=== PATIENT | male | born 1975 | race Two or more races ===

== ENCOUNTER 2018-01-30 12:32 | Inpatient (IN) | payer OTHER ==
--- NOTE | 2018-01-30 12:57 | PDOC ---
History of Present Illness - General Stated Complaint: BITE Time Seen by Provider: 01/30/18 12:53 - History of Present Illness Initial Comments: 01/30/18 12:55 42 yo M with no significant pmh who p/w with redness and swelling at left bicep. Patient reports that he noticed worsening, redness, swelling, and pain at left bicep beginning yesterday (01/29/18). No drainage discharge appreciated. No identifiable triggers. Also endorses nausea without vomiting, decreased appetite, and diffuse headache beginning today. Denies OTC symptom management. Denies F/C, vomiting, CP, SOB, abdominal pain, diarrhea, constipation, urinary complaints, weakness, lightheadedness, sensory changes. PMHx: as noted above. Denies h/o cellulitis, or DM. ROS: as noted above SHx:1 cigarette per week for 5+ years. Denies Etoh, IVDA. Allergies: NKDA Past History - Past Medical History Allergies/Adverse Reactions: Allergies Allergy/AdvReac Type Severity Reaction Status Date / Time No Known Allergies Allergy Verified 01/30/18 12:36 COPD: No - Immunization History Immunization Up to Date: (UNKNOWN) - Suicide/Smoking/Psychosocial Hx Smoking History: Current every day smoker Have you smoked in the past 12 months: Yes Number of Cigarettes Smoked Daily: 2 Information on smoking cessation initiated: No Hx Alcohol Use: Yes (DAILY) Drug/Substance Use Hx: No Substance Use Type: Alcohol Review of Systems - Review of Systems Comments:: 01/30/18 12:56 GENERAL/CONSTITUTIONAL: No fever or chills. No weakness. HEAD, EYES, EARS, NOSE AND THROAT: No change in vision. No ear pain or discharge. No sore throat. CARDIOVASCULAR: No chest pain or shortness of breath RESPIRATORY: No cough, wheezing, or hemoptysis. GASTROINTESTINAL:+ nausea, and vomiting. No diarrhea or constipation. GENITOURINARY: No dysuria, frequency, or change in urination. MUSCULOSKELETAL: No joint or muscle swelling or pain. No neck or back pain. SKIN: + skin change left arm. NEUROLOGIC: No headache, vertigo, loss of consciousness, or change in strength/ sensation. ENDOCRINE: No increased thirst. No abnormal weight change HEMATOLOGIC/LYMPHATIC: No anemia, easy bleeding, or history of blood clots. ALLERGIC/IMMUNOLOGIC: No hives or skin allergy. *Physical Exam - Vital Signs Last Vital Signs Temp Pulse Resp BP Pulse Ox 98.9 F 123 H 20 131/57 98 01/30/18 12:36 01/30/18 12:36 01/30/18 12:36 01/30/18 12:36 01/30/18 12:36 - Physical Exam Comments: 01/30/18 12:56 GENERAL: Awake, alert, and fully oriented, in no acute distress HEAD: No signs of trauma, normocephalic, atraumatic EYES: PERRLA, EOMI, sclera anicteric, conjunctiva clear ENT: Hearing grossly normal, nares patent, oropharynx clear without exudates. Moist mucosa NECK: Normal ROM, supple, no lymphadenopathy, JVD, or masses LUNGS: No distress, speaks full sentences, clear to auscultation bilaterally HEART: Regular rate and rhythm, normal S1 and S2, no murmurs, rubs or gallops, peripheral pulses normal and equal bilaterally. ABDOMEN: Soft, nontender, normoactive bowel sounds. No guarding, no rebound. No masses. Skin: Left medial brachial 5 x 5 cm area of erythema, warmth, and ttp, with 4 x 3 deep area of slightl;y indurated, non fluctuant, firmness. + Central punctum, with absent drainage and discharge. Absent streaking, inguinal lymphadenopathy. EXTREMITIES : Normal inspection, Normal range of motion, no edema. No clubbing or cyanosis. ED Treatment Course - LABORATORY CBC & Chemistry Diagram: 01/30/18 13:06 01/30/18 13:06 Medical Decision Making - Medical Decision Making 01/30/18 13:14 42 yo M with no significant pmh who p/w with redness and swelling at left bicep. HR 123, Temp 98.9. Physical exam notable for left medial brachial 5 x 5 cm area of erythema, warmth, and ttp, with central area of induration, and firmness. Most likely cellulitis, with probable abscess. Patient noted to be tachycardic in triage, but no with no other SIRS criteria. However, patient with possible systemic signs of infection. Will obtain basic laboratory evaluation, and possible I&D. ED Course: CBC, CMP, Lactic Acid, blood culture U/S 01/30/18 14:21 WBC 15.2 01/30/18 14:21 LA: Neg UA: Neg Plan to admit for Cellulitis/SEPSIS, Started Clindamycin 600 mg IV 01/30/18 15:22 LUE U/S: Soft tissue swelling upper medial arm. No fluid collection. 01/30/18 15:33 Patient admitted to [facility] *DC/Admit/Observation/Transfer Diagnosis at time of Disposition: Cellulitis Qualifiers: Site of cellulitis: extremity Site of cellulitis of extremity: upper extremity Laterality: left Qualified Code(s): L03.114 - Cellulitis of left upper limb - Discharge Dispostion Decision to Admit order: Yes - Referrals - Patient Instructions Additional Instructions: Please return to the emergency department with any new or worsening symptoms or concerns. Please follow up with your primary care physician within 72 hours. - Post Discharge Activity - Attestations Physician Attestion: 01/30/18 12:57 I attest to the information provided in this note.
[2018-01-30 13:28] LABS: BASO % 0.6 % (0-2.0); EOS % 0.2 % (0-4.5); HEMATOCRIT 45.2 % (35.4-49); HEMOGLOBIN 15.3 GM/dL (11.7-16.9); MCH 29.8 pg (25.7-33.7); MCHC 33.9 g/dl (32.0-35.9); MEAN CELL VOLUME 88.1 fl (80-96); MEAN PLT VOLUME 9.2 fl (7.5-11.1); MONO % 7.6 % (3.8-10.2); NEUT % 80.6 % (42.8-82.8); PLATELET COUNT 250 K/MM3 (134-434); RBC 5.13 M/mm3 (4.00-5.60); RDW 12.9 % (11.9-15.9); WHITE BLOOD COUNT 15.2 K/mm3 (4.0-10.0)
[2018-01-30 13:45] LABS: URINE APPEARANCE CLEAR; URINE BILIRUBIN NEGATIVE (<2.0 mg/dL); URINE COLOR YELLOW; URINE GLUCOSE (UA) NEGATIVE (NEGATIVE); URINE KETONE NEGATIVE (NEGATIVE); URINE LEUK ESTERASE NEGATIVE (NEGATIVE); URINE NITRITE NEGATIVE (NEGATIVE); URINE UROBILINOGEN NEGATIVE mg/dL (0.2-1.0)
[2018-01-30 13:46] LABS: URINE PROTEIN 1+ (NEGATIVE)
[2018-01-30 13:51] LABS: ALBUMIN 4.4 g/dl (3.4-5.0); ALK PHOS 79 U/L (45-117); ANION GAP 9 (8-16); BILIRUBIN,TOTAL 0.7 mg/dL (0.2-1.0); BLOOD UREA NITROGEN 12 mg/dL (7-18); CALCIUM 9.2 mg/dL (8.5-10.1); CHLORIDE 102 mmol/L (98-107); CO2 24 mmol/L (21-32); CREATININE 0.6 mg/dL (0.7-1.3); GLUCOSE,RANDOM 106 mg/dL (74-106); POTASSIUM 4.1 mmol/L (3.5-5.1); SGOT/AST 23 U/L (15-37); SGPT/ALT 42 U/L (12-78); SODIUM 135 mmol/L (136-145)
[2018-01-30] MEDS ORDERED: CLINDAMYCIN 600MG PREMIX IVPB 600 MG/50 ML BAG IVPB ONE ×2 (14:21→14:35)
--- NOTE | 2018-01-30 14:25 | PDOC ---
Attending Attestation - [facility] HPI: 01/30/18 14:30 The patient is a 42 year old male no significant past medical history who presents to the emergency department for evaluation of redness and swelling of left bicep. The patient reports a 2 day history of swelling and pain at the left bicep. He reports moderate pain in his left bicep with no radiation. The patient reports associated symptoms of a moderate headache, chills, and nausea, without vomiting. He states the swelling and pain is much worse today than yesterday which prompted him to visit the emergency department for further evaluation. The patient denies history of cellulitis, diabetes, chest pain, shortness of breath, and dizziness. Denies fevers, vomiting, diarrhea, and constipation. Allergies: NKDA Past surgical history: Patient denies. Social history: Current everyday smoker. No reported alcohol consumption or drug use. Works at a restaurant. - Physicial Exam PE: Vitals: Triage Vital signs reviewed General Appearance: no acute distress, well nourished well developed, Head: Atraumatic, normocephalic Neck: Supple. Chest Wall: Nontender Cardiac: Regular rate and rhythm, no murmurs, no rubs, no gallops, Lungs: Clear to auscultation bilateral, good air movement bilaterally, Abdomen: Soft, nondistended, normal bowel sounds, nontender to palpation Extremities: (+)Large area of cellulitic redness on left bicep, firm and indurated. Skin: Warm and dry, no rashes or lesions, no petechiae Psych: normal mood, normal affect. - Medical Decision Making The patient is a 42 year old male no significant past medical history who presents to the emergency department for evaluation of redness and swelling of left bicep. Plan: Antibiotics Ultrasound <Patrica Gutierrez - Last Filed: 01/30/18 15:34> - Resident Resident Name: Jeremias Del Cid - ED Attending Attestation I have performed the following: I have examined & evaluated the patient, The case was reviewed & discussed with the resident, I agree w/resident's findings & plan, Exceptions are as noted - Medical Decision Making History examination concerning for cellulitis of the bicep with systemic spread given fever chills and elevated white blood cell count. Clindamycin ordered. Infectious disease consult ordered. Arron to medicine for further management. Ultrasound demonstrates no DVT and no drainable abscess. <Yrn Haynes - Last Filed: 01/30/18 18:51> Attestations - Attestations Documentation prepared by Patrica Gutierrez, acting as medical billing service for Yrn Haynes MD. <Patrica Gutierrez - Last Filed: 01/30/18 15:34>
[2018-01-30] MEDS ORDERED: ONDANSETRON 4 MG/2 ML VIAL IVPB ONE (15:03)
[2018-01-30] MEDS ORDERED: ONDANSETRON 4 MG/2 ML VIAL ONE (15:05)
[2018-01-30] MEDS: AMPICILLIN NA/SULBACTAM NA 3 GM in SODIUM CHLORIDE 100 ML IVPB SCH (16:46)
[2018-01-30] MEDS ORDERED: traMADol HCL 50 MG TABLET PO PRN ×2 (17:08→17:11)
--- NOTE | 2018-01-30 17:09 | HP ---
CHIEF COMPLAINT: Left upper arm pain, rednes x 2 days PCP: none HISTORY OF PRESENT ILLNESS: Patient is a 42 year old male with a no significant past medical history and on no home medications, comes in to the ER today with c/o of left bicep edema, redness and pain. Patient states that the left upper arm pain began on 01/29 and became progressively worse this morning prompting an ED visit. 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 Denies trauma, denies IV drug use. He reports headache, nausea and vomiting secondary to the pain. A left upper extremity doppler negative for DVT. On exam, patient appears to be in moderate pain when left bicep is palpated. No other areas of redness or edema noted. There is no drainage. He denies any animal/tick bites. There is a very small <0.5cm circular pimple on center of wound. Denies chest pain, shortness of breath or abdominal pain. No weakness or lightheadedness. ER course was notable for: (1) WBC 15.2 (2) Negative left upper ext doppler (3) Recent Travel: PAST MEDICAL HISTORY: PAST SURGICAL HISTORY: Social History: Smoking: na Alcohol: na Drugs: na Family History: Allergies No Known Allergies Allergy (Verified 01/30/18 12:36) HOME MEDICATIONS: Vital Signs - 24 hr 01/30/18 01/30/18 12:36 16:46 Temperature 98.9 F 99.0 F Pulse Rate 123 H Pulse Rate [ 95 H Left Apical] Respiratory 20 16 Rate Blood Pressure 131/57 Blood Pressure 146/86 [Left Arm] O2 Sat by Pulse 98 97 Oximetry (%) GENERAL: Awake, alert, and fully oriented, in no acute distress. HEAD: Normal with no signs of trauma. EYES: Pupils equal, round and reactive to light, extraocular movements intact, sclera anicteric, conjunctiva clear. No lid lag. EARS, NOSE, THROAT: Ears normal, nares patent, oropharynx clear without exudates. Moist mucous membranes. NECK: Normal range of motion, supple without lymphadenopathy, JVD, or masses. LUNGS: Breath sounds equal, clear to auscultation bilaterally. No wheezes, and no crackles. No accessory muscle use. HEART: Regular rate and rhythm, normal S1 and S2 without murmur, rub or gallop. ABDOMEN: Soft, nontender, not distended, normoactive bowel sounds, no guarding, no rebound, no masses. No hepatomegaly or splenomegaly. UPPER EXTREMITIES: left upper arm edema, pain swelling LOWER EXTREMITIES: 2+ pulses, warm, well-perfused. No calf tenderness. No peripheral edema. NEUROLOGICAL: Cranial nerves II-XII intact. Normal speech. Normal gait. PSYCHIATRIC: Cooperative. Good eye contact. Appropriate mood and affect. SKIN: Warm, dry, normal turgor, no rashes or lesions noted, normal capillary refill. Laboratory Results - last 24 hr 01/30/18 01/30/18 01/30/18 13:06 13:06 13:06 WBC 15.2 H RBC 5.13 Hgb 15.3 Hct 45.2 MCV 88.1 MCH 29.8 MCHC 33.9 RDW 12.9 Plt Count 250 MPV 9.2 Absolute Neuts (auto) 12.2 Neutrophils % 80.6 Lymphocytes % 11.0 Monocytes % 7.6 Eosinophils % 0.2 Basophils % 0.6 Nucleated RBC % 0 Sodium 135 L Potassium 4.1 Chloride 102 Carbon Dioxide 24 Anion Gap 9 BUN 12 Creatinine 0.6 L Creat Clearance w eGFR > 60 Random Glucose 106 Lactic Acid 0.8 Calcium 9.2 Total Bilirubin 0.7 AST 23 ALT 42 Alkaline Phosphatase 79 Total Protein 8.0 Albumin 4.4 Urine Color Urine Appearance Urine pH Ur Specific [place] Urine Protein Urine Glucose (UA) Urine Ketones Urine Blood Urine Nitrite Urine Bilirubin Urine Urobilinogen Ur Leukocyte Esterase Urine WBC (Auto) Urine RBC (Auto) 01/30/18 13:30 WBC RBC Hgb Hct MCV MCH MCHC RDW Plt Count MPV Absolute Neuts (auto) Neutrophils % Lymphocytes % Monocytes % Eosinophils % Basophils % Nucleated RBC % Sodium Potassium Chloride Carbon Dioxide Anion Gap BUN Creatinine Creat Clearance w eGFR Random Glucose Lactic Acid Calcium Total Bilirubin AST ALT Alkaline Phosphatase Total Protein Albumin Urine Color Yellow Urine Appearance Clear Urine pH 7.0 Ur Specific [place] 1.023 Urine Protein 1+ H Urine Glucose (UA) Negative Urine Ketones Negative Urine Blood Negative Urine Nitrite Negative Urine Bilirubin Negative Urine Urobilinogen Negative Ur Leukocyte Esterase Negative Urine WBC (Auto) 1 Urine RBC (Auto) None ASSESSMENT/PLAN: Patient is a 42 year old male with a no significant past medical history and on no home medications, comes in to the ER today with c/o of left bicep edema, redness and pain. Patient states that the left upper arm pain began on 01/29 and became progressively worse this morning prompting an ED visit. 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 Denies trauma, denies IV drug use. He reports headache, nausea and vomiting secondary to the pain. A left upper extremity doppler negative for DVT. On exam, patient appears to be in moderate pain when left bicep is palpated. No other areas of redness or edema noted. There is no drainage. He denies any animal/tick bites. There is a very small <0.5cm circular pimple on center of wound. Denies chest pain, shortness of breath or abdominal pain. No weakness or lightheadedness. ID: Left upper arm cellulitis, unclear etiology. Blood and Urine cultures sent. Start on Unasyn, apply warm compresses. Manage pain, monitor site for worsening edema. Negative for DVT, clots. CT scan of left upper ext ordered to rule out abscess. Lymes panel pending. Order hmg a1c, lipid panel. FEN NS @ 42cc for mild hyponatremia monitor electrolytes Low sodium diet Prophy: Heparin Protonix PT Visit type - Emergency Visit Emergency Visit: Yes ED Registration Date: 01/30/18 Care time: The patient presented to the Emergency Department on the above date and was hospitalized for further evaluation of their emergent condition. - New Patient This patient is new to me today: Yes Date on this admission: 01/30/18 - Critical Care Critical Care patient: No Hospitalist Screening - Colonoscopy Questionnaire Colonoscopy Questionnaire: Colonoscopy Questionnaire - Patient: 50 - 75 years old and never had a screening colonoscopy: Unknown History of colon or rectal polyps, or CA: Unknown History of IBD, Crohn's disease or UC: Unknown History of abdominal radiation therapy as a child: Unknown - Relative: 1 with colon or rectal CA, or polyps at age 60 or younger: Unknown Colon or rectal CA diagnosed at age 45 or younger: Unknown Multiple relatives with colon or rectal CA: Unknown - Outcome: Screening Result: Negative Screen
[2018-01-30] MEDS ORDERED: morphine SULFATE 4 MG/ML VIAL IM PRN (17:12)
[2018-01-30 18:08] VITALS: BMI 32.6
[2018-01-30] MEDS: SODIUM CHLORIDE 1,000 ML IV SCH (19:12)
[2018-01-30] MEDS: ACETAMINOPHEN 325 MG TABLET (FP) PO PRN (21:15)
[2018-01-31] MEDS: AMPICILLIN NA/SULBACTAM NA 3 GM in SODIUM CHLORIDE 100 ML IVPB SCH ×4 (01:08→18:05)
[2018-01-31 07:35] LABS: HEMATOCRIT 41.6 % (35.4-49); HEMOGLOBIN 14.3 GM/dL (11.7-16.9); MCH 30.8 pg (25.7-33.7); MCHC 34.5 g/dl (32.0-35.9); MEAN CELL VOLUME 89.4 fl (80-96); MEAN PLT VOLUME 9.7 fl (7.5-11.1); PLATELET COUNT 206 K/MM3 (134-434); RBC 4.65 M/mm3 (4.00-5.60); RDW 12.9 % (11.9-15.9); WHITE BLOOD COUNT 12.4 K/mm3 (4.0-10.0)
[2018-01-31 08:12] LABS: CHLORIDE 105 mmol/L (98-107); POTASSIUM 4.2 mmol/L (3.5-5.1); SODIUM 137 mmol/L (136-145)
[2018-01-31 08:20] LABS: ANION GAP 8 (8-16); BLOOD UREA NITROGEN 13 mg/dL (7-18); CALCIUM 8.3 mg/dL (8.5-10.1); CO2 24 mmol/L (21-32); CREATININE 0.6 mg/dL (0.7-1.3); GLUCOSE,RANDOM 101 mg/dL (74-106); MAGNESIUM 2.2 mg/dL (1.8-2.4)
--- NOTE | 2018-01-31 09:03 | CON.ID ---
Consult Consult Specialty:: infectious diseases Referred by:: Indy Reason for Consultation:: cellulitis of the left medial side of the arm - History of Present Illness Chief Complaint: pain and swelling and redness on the medical side of the left arm History of Present Illness: 42 year old male with a no significant past medical history and on no home medications, comes in to the ER today with c/o of left bicep edema, redness and pain. Patient states that the left upper arm pain began on 01/29 and became progressively worse this morning prompting an ED visit. 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 Denies trauma, denies IV drug use. He reports headache, nausea and vomiting secondary to the pain. patient does not know how exactly this started the swelling went on increasing with tenderness and erythema A left upper extremity doppler negative for DVT. - History Source History Provided By: Patient Limitations to Obtaining History: Language Barrier - Alcohol/Substance Use Hx Alcohol Use: Yes (DAILY) - Smoking History Smoking history: Current every day smoker Have you smoked in the past 12 months: Yes Aproximately how many cigarettes per day: 2 Home Medications - Allergies Allergies/Adverse Reactions: Allergies Allergy/AdvReac Type Severity Reaction Status Date / Time No Known Allergies Allergy Verified 01/30/18 12:36 Review of Systems - Review of Systems Constitutional: reports: No Symptoms Eyes: reports: No Symptoms HENT: reports: No Symptoms Neck: reports: No Symptoms Cardiovascular: reports: No Symptoms Respiratory: reports: No Symptoms Gastrointestinal: reports: No Symptoms Genitourinary: reports: No Symptoms Musculoskeletal: reports: Muscle Pain Integumentary: reports: Change in Color, Erythema (left arm) Neurological: reports: No Symptoms Endocrine: reports: No Symptoms Hematology/Lymphatic: reports: No Symptoms Psychiatric: reports: No Symptoms Physical Exam Vital Signs: Vital Signs Temperature 99.4 F 01/31/18 05:00 Pulse Rate 96 H 01/31/18 05:00 Respiratory Rate 18 01/31/18 05:00 Blood Pressure 109/62 01/31/18 05:00 O2 Sat by Pulse Oximetry (%) 98 01/30/18 21:00 Constitutional: Yes: Well Nourished, Calm, Mild Distress Eyes: Yes: Conjunctiva Clear HENT: Yes: Atraumatic, Normocephalic Neck: Yes: Supple, Trachea Midline Cardiovascular: Yes: Regular Rate and Rhythm Respiratory: Yes: Regular, CTA Bilaterally Gastrointestinal: Yes: Normal Bowel Sounds, Soft Musculoskeletal: Yes: WNL Extremities: Yes: Erythema, Other (swelling of the left arm) Edema: LUE: Trace Integumentary: Yes: Erythema, Other (induration) Wound/Incision: Yes: Other (patient has a head on the induration) Neurological: Yes: Alert, Oriented Psychiatric: Yes: Alert, Oriented Labs: CBC, BMP 01/31/18 06:15 01/31/18 06:15 Imaging - Results Chest X-ray: Report Reviewed, Image Reviewed Ultrasound: Report Reviewed, Image Reviewed Assessment/Plan patient coming with cellulitis of the left hand which has been ongoing now for 3 days with pain and leukocytosis currently is very tender at the moment it is more induaration and without any definite abscess noted though there is a head on the induration indication that could be the opening swelling of the left arm cellulitis of the left arm leukocytosis pain patient received a dose of clinda plan will add unasyn to clinda continue clinda monitor swelling monitor wbc rest as per the team
--- NOTE | 2018-01-31 09:11 | PN ---
Progress Note, Physician Chief Complaint: with pain and swelling redness slightly better - Current Medication List Current Medications: Active Medications Acetaminophen (Tylenol -) 650 mg PO Q6H PRN PRN Reason: PAIN LEVEL 7 - 10 Last Admin: 01/30/18 21:15 Dose: 650 mg Ampicillin Sodium/Sulbactam (Sodium 3 gm/ Sodium Chloride) 100 mls @ 200 mls/ hr IVPB Q8H-IV ROLDAN Last Admin: 01/31/18 07:18 Dose: Not Given Sodium Chloride (Normal Saline -) 1,000 mls @ 42 mls/hr IV ASDIR ROLDAN Last Admin: 01/30/18 19:12 Dose: 42 mls/hr Morphine Sulfate (Morphine Sulfate) 0.5 mg IM Q6H PRN PRN Reason: PAIN LEVEL 7 - 10 Pantoprazole Sodium (Protonix -) 40 mg PO DAILY ROLDAN Tramadol HCl (Ultram -) 50 mg PO Q4H PRN PRN Reason: PAIN LEVEL 4 - 6 Last Admin: 01/30/18 18:16 Dose: 50 mg - Objective Vital Signs: Vital Signs Temperature 99.4 F 01/31/18 05:00 Pulse Rate 96 H 01/31/18 05:00 Respiratory Rate 18 01/31/18 05:00 Blood Pressure 109/62 01/31/18 05:00 O2 Sat by Pulse Oximetry (%) 98 01/30/18 21:00 Constitutional: Yes: No Distress, Calm Cardiovascular: Yes: Regular Rate and Rhythm Respiratory: Yes: Regular, CTA Bilaterally Gastrointestinal: Yes: Normal Bowel Sounds, Soft Musculoskeletal: Yes: WNL Extremities: Yes: Erythema (left arm swelling and induration) Integumentary: Yes: Erythema, Other Neurological: Yes: Alert, Oriented Psychiatric: Yes: Alert, Oriented Labs: CBC, BMP 01/31/18 06:15 01/31/18 06:15 Assessment/Plan patient coming with cellulitis of the left hand which has been ongoing now for 3 days with pain and leukocytosis currently is very tender at the moment it is more induaration and without any definite abscess noted though there is a head on the induration indication that could be the opening swelling of the left arm cellulitis of the left arm leukocytosis pain wbc has decreased plan continue abx monitor swelling monitor wbc rest as per the team
[2018-01-31] MEDS: PANTOPRAZOLE 40 MG TABLET (FP) PO SCH (10:41)
--- NOTE | 2018-01-31 15:32 | PN ---
Physical Exam: SUBJECTIVE: Patient seen and examined OBJECTIVE: Vital Signs Period Temp Pulse Resp BP Sys/Carlton Pulse Ox Last 24 Hr 98.5 F-100.2 F 72-100 16-18 106-146/56-86 95-98 GENERAL: The patient is awake, alert, and fully oriented, in no acute distress. HEAD: Normal with no signs of trauma. EYES: PERRL, extraocular movements intact, sclera anicteric, conjunctiva clear. No ptosis. ENT: Ears normal, nares patent, oropharynx clear without exudates, moist mucous membranes. NECK: Trachea midline, full range of motion, supple. LUNGS: Breath sounds equal, clear to auscultation bilaterally, no wheezes, no crackles, no accessory muscle use. HEART: Regular rate and rhythm, S1, S2 without murmur, rub or gallop. ABDOMEN: Soft, nontender, nondistended, normoactive bowel sounds, no guarding, no rebound, no hepatosplenomegaly, no masses. EXTREMITIES: 2+ pulses, warm, well-perfused, no edema. NEUROLOGICAL: Cranial nerves II through XII grossly intact. Normal speech, gait not observed. PSYCH: Normal mood, normal affect. SKIN: Warm, dry, normal turgor, no rashes or lesions noted Laboratory Results - last 24 hr 01/30/18 01/31/18 01/31/18 18:00 06:15 06:15 WBC 12.4 H RBC 4.65 Hgb 14.3 Hct 41.6 MCV 89.4 MCH 30.8 MCHC 34.5 RDW 12.9 Plt Count 206 MPV 9.7 Sodium 137 Potassium 4.2 Chloride 105 Carbon Dioxide 24 Anion Gap 8 BUN 13 Creatinine 0.6 L Creat Clearance w eGFR > 60 Random Glucose 101 Hemoglobin A1c % Calcium 8.3 L Magnesium 2.2 Troponin I < 0.02 Triglycerides Cholesterol Total LDL Cholesterol HDL Cholesterol TSH Free T4 01/31/18 01/31/18 01/31/18 06:15 06:15 06:15 WBC RBC Hgb Hct MCV MCH MCHC RDW Plt Count MPV Sodium Potassium Chloride Carbon Dioxide Anion Gap BUN Creatinine Creat Clearance w eGFR Random Glucose Hemoglobin A1c % 6.0 Calcium Magnesium Troponin I Triglycerides 103 Cholesterol 139 Total LDL Cholesterol 84 HDL Cholesterol 44 TSH 1.41 Free T4 0.94 Active Medications Generic Name Dose Route Start Last Admin Trade Name Freq PRN Reason Stop Dose Admin Acetaminophen 650 mg 01/30/18 17:07 01/30/18 21:15 Tylenol - PO 650 mg Q6H PRN Administration PAIN LEVEL 7 - 10 Ampicillin Sodium/Sulbactam 100 mls @ 200 mls/hr 01/30/18 16:00 01/31/18 11: 57 Sodium 3 gm/ Sodium Chloride IVPB 200 mls/hr Q8H-IV ROLDAN Administration Sodium Chloride 1,000 mls @ 42 mls/hr 01/30/18 18:45 01/30/18 19:12 Normal Saline - IV 42 mls/hr ASDIR ROLDAN Administration Morphine Sulfate 0.5 mg 01/30/18 17:12 Morphine Sulfate IM Q6H PRN PAIN LEVEL 7 - 10 Pantoprazole Sodium 40 mg 01/31/18 10:00 01/31/18 10:41 Protonix - PO 40 mg DAILY ROLDAN Administration Tramadol HCl 50 mg 01/30/18 17:11 01/30/18 18:16 Ultram - PO 50 mg Q4H PRN Administration PAIN LEVEL 4 - 6 ASSESSMENT/PLAN: Patient is a 42 year old male with a no significant past medical history and on no home medications, comes in to the ER with c/o of left bicep edema, redness and pain. Patient states that the left upper arm pain began on 01/29 and became progressively prompting an ED visit. 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 Denies trauma, denies IV drug use. He reports headache, nausea and vomiting secondary to the pain. A left upper extremity doppler negative for DVT. No other areas of redness or edema noted. There is no drainage. He denies any animal/tick bites. There is a very small <0.5cm circular pimple on center of wound. Denies chest pain, shortness of breath or abdominal pain. No weakness or lightheadedness. ID: Left upper arm cellulitis, unclear etiology. Blood and Urine cultures sent. Start on Unasyn, apply warm compresses. Manage pain, monitor site for worsening edema. Negative for DVT, clots. CT scan of left upper ext ordered to rule out abscess-pending. Lymes panel pending. ID following. notes reviewed, recommend to continue Unasyn as redness improving. Warm compresses are also helping. FEN NS @ 42cc for mild hyponatremia monitor electrolytes Low sodium diet Prophy: Heparin Protonix PT Visit type - Emergency Visit Emergency Visit: Yes ED Registration Date: 01/30/18 Care time: The patient presented to the Emergency Department on the above date and was hospitalized for further evaluation of their emergent condition. - New Patient This patient is new to me today: No - Critical Care Critical Care patient: No - Discharge Referral Referred to [facility] No
--- NOTE | 2018-01-31 17:48 | EKG ---
Test Reason : Blood Pressure : / mmHG Vent. Rate : 091 BPM Atrial Rate : 091 BPM P-R Int : 150 ms QRS Dur : 080 ms QT Int : 344 ms P-R-T Axes : 054 034 059 degrees QTc Int : 423 ms NORMAL SINUS RHYTHM NONSPECIFIC T WAVE ABNORMALITY ABNORMAL ECG NO PREVIOUS ECGS AVAILABLE Confirmed by IRIS MORA MD ([id number]) on 01/31/2018 5:48:26 PM Referred By: Confirmed By:IRIS MORA MD
[2018-01-31] MEDS ORDERED: PT OWN MED DRAWER 7, Y5N ONE (18:02)
[2018-01-31] MEDS: SODIUM CHLORIDE 1,000 ML IV SCH (18:06)
[2018-01-31] MEDS: ACETAMINOPHEN 325 MG TABLET (FP) PO PRN (18:08)
[2018-02-01] MEDS ORDERED: PT OWN MED DRAWER 7, Y5N ONE ×2 (01:13→17:21)
[2018-02-01] MEDS: AMPICILLIN NA/SULBACTAM NA 3 GM in SODIUM CHLORIDE 100 ML IVPB SCH ×3 (02:25→17:24)
[2018-02-01 07:31] LABS: BASO % 0.5 % (0-2.0); EOS % 1.2 % (0-4.5); HEMATOCRIT 40.5 % (35.4-49); LYMPH % 14.7 % (8-40); MCH 30.8 pg (25.7-33.7); MCHC 34.6 g/dl (32.0-35.9); MEAN CELL VOLUME 89.1 fl (80-96); MEAN PLT VOLUME 9.3 fl (7.5-11.1); MONO % 7.5 % (3.8-10.2); NEUT % 76.1 % (42.8-82.8); PLATELET COUNT 207 K/MM3 (134-434); RBC 4.55 M/mm3 (4.00-5.60); RDW 12.8 % (11.9-15.9); WHITE BLOOD COUNT 10.5 K/mm3 (4.0-10.0)
[2018-02-01 08:04] LABS: CHLORIDE 106 mmol/L (98-107); POTASSIUM 4.1 mmol/L (3.5-5.1); SODIUM 138 mmol/L (136-145)
[2018-02-01 08:23] LABS: ALBUMIN 3.2 g/dl (3.4-5.0); ALK PHOS 58 U/L (45-117); ANION GAP 7 (8-16); BILIRUBIN,TOTAL 0.5 mg/dL (0.2-1.0); BLOOD UREA NITROGEN 11 mg/dL (7-18); CALCIUM 7.9 mg/dL (8.5-10.1); CO2 25 mmol/L (21-32); CREATININE 0.5 mg/dL (0.7-1.3); GLUCOSE,RANDOM 94 mg/dL (74-106); MAGNESIUM 2.1 mg/dL (1.8-2.4); SGOT/AST 14 U/L (15-37); SGPT/ALT 32 U/L (12-78); TOT PROT 6.4 g/dl (6.4-8.2)
--- NOTE | 2018-02-01 10:46 | PN ---
Progress Note, Physician History of Present Illness: still with the swelling which has actually increased more fluctuation tenderness noted - Current Medication List Current Medications: Active Medications Acetaminophen (Tylenol -) 650 mg PO Q6H PRN PRN Reason: PAIN LEVEL 7 - 10 Last Admin: 01/31/18 18:08 Dose: 650 mg Ampicillin Sodium/Sulbactam (Sodium 3 gm/ Sodium Chloride) 100 mls @ 200 mls/ hr IVPB Q8H-IV ROLDAN Last Admin: 02/01/18 02:25 Dose: 200 mls/hr Sodium Chloride (Normal Saline -) 1,000 mls @ 42 mls/hr IV ASDIR ROLDAN Last Admin: 01/31/18 18:06 Dose: 42 mls/hr Clindamycin Phosphate (Cleocin 600 Mg Premix Ivpb -) 600 mg in 50 mls @ 100 mls /hr IVPB Q8H-IV ROLDAN; Protocol Morphine Sulfate (Morphine Sulfate) 0.5 mg IM Q6H PRN PRN Reason: PAIN LEVEL 7 - 10 Pantoprazole Sodium (Protonix -) 40 mg PO DAILY [facility] Last Admin: 01/31/18 10:41 Dose: 40 mg Tramadol HCl (Ultram -) 50 mg PO Q4H PRN PRN Reason: PAIN LEVEL 4 - 6 Last Admin: 01/30/18 18:16 Dose: 50 mg - Objective Vital Signs: Vital Signs Temperature 98.9 F 02/01/18 06:00 Pulse Rate 89 02/01/18 06:00 Respiratory Rate 20 02/01/18 06:00 Blood Pressure 114/60 02/01/18 06:00 O2 Sat by Pulse Oximetry (%) 97 01/31/18 21:43 Constitutional: Yes: No Distress, Calm Cardiovascular: Yes: Regular Rate and Rhythm Respiratory: Yes: Regular, CTA Bilaterally Gastrointestinal: Yes: Normal Bowel Sounds, Soft Musculoskeletal: Yes: WNL Extremities: Yes: Erythema, Other Integumentary: Yes: Erythema Neurological: Yes: Alert, Oriented Psychiatric: Yes: Alert, Oriented Labs: CBC, BMP 02/01/18 06:00 02/01/18 06:00 Assessment/Plan patient coming with cellulitis of the left hand which has been ongoing now for 3 days with pain and leukocytosis currently is very tender at the moment it is more induration and without any definite abscess noted though there is a head on the induration indication that could be the opening swelling of the left arm cellulitis of the left arm leukocytosis pain wbc has decreased plan continue abx monitor swelling monitor wbc rest as per the team will add clinda i think we should reimage
[2018-02-01] MEDS: PANTOPRAZOLE 40 MG TABLET (FP) PO SCH (10:55)
[2018-02-01] MEDS: ACETAMINOPHEN 325 MG TABLET (FP) PO PRN ×2 (11:05→18:49)
[2018-02-01] MEDS: CLINDAMYCIN 600MG PREMIX IVPB 600 MG/50 ML BAG IVPB SCH ×2 (11:06→17:24)
--- NOTE | 2018-02-01 16:53 | PN ---
Physical Exam: SUBJECTIVE: Patient seen and examined. ot has pain and states erythema is worse today. OBJECTIVE: Vital Signs Period Temp Pulse Resp BP Sys/Carlton Pulse Ox Last 24 Hr 97.7 F-98.9 F 84-94 18-20 104-123/60-77 97-97 PE Neuro: alert, awake, cn 2-12intact Pulm: CTAB CV: s1 s2 rrr Abd: s nt nd + bs Ext: LUE swelling erythema tenderness warm Laboratory Results - last 24 hr 01/31/18 02/01/18 02/01/18 06:15 06:00 06:00 WBC 10.5 H RBC 4.55 Hgb 14.0 Hct 40.5 MCV 89.1 MCH 30.8 MCHC 34.6 RDW 12.8 Plt Count 207 MPV 9.3 Absolute Neuts (auto) 8.0 Neutrophils % 76.1 Lymphocytes % 14.7 D Monocytes % 7.5 Eosinophils % 1.2 D Basophils % 0.5 Nucleated RBC % 0 Sodium 138 Potassium 4.1 Chloride 106 Carbon Dioxide 25 Anion Gap 7 L BUN 11 Creatinine 0.5 L Creat Clearance w eGFR > 60 Random Glucose 94 Calcium 7.9 L Magnesium 2.1 Total Bilirubin 0.5 D AST 14 L D ALT 32 D Alkaline Phosphatase 58 D Total Protein 6.4 Albumin 3.2 L D Free T3 3.1 Active Medications Generic Name Dose Route Start Last Admin Trade Name Freq PRN Reason Stop Dose Admin Acetaminophen 650 mg 01/30/18 17:07 02/01/18 11:05 Tylenol - PO 650 mg Q6H PRN Administration PAIN LEVEL 7 - 10 Ampicillin Sodium/Sulbactam 100 mls @ 200 mls/hr 01/30/18 16:00 02/01/18 10: 54 Sodium 3 gm/ Sodium Chloride IVPB 200 mls/hr Q8H-IV ROLDAN Administration Sodium Chloride 1,000 mls @ 42 mls/hr 01/30/18 18:45 01/31/18 18:06 Normal Saline - IV 42 mls/hr ASDIR ROLDAN Administration Clindamycin Phosphate 600 mg in 50 mls @ 100 mls/hr 02/01/18 10:45 02/01/18 11:06 Cleocin 600 Mg Premix Ivpb - IVPB 100 mls/hr Q8H-IV ROLDAN Administration Protocol Morphine Sulfate 0.5 mg 01/30/18 17:12 Morphine Sulfate IM Q6H PRN PAIN LEVEL 7 - 10 Pantoprazole Sodium 40 mg 01/31/18 10:00 02/01/18 10:55 Protonix - PO 40 mg DAILY ROLDAN Administration Tramadol HCl 50 mg 01/30/18 17:11 01/30/18 18:16 Ultram - PO 50 mg Q4H PRN Administration PAIN LEVEL 4 - 6 Microbiology 01/30/18 14:20 Blood - Peripheral Venous Blood Culture - Preliminary NO GROWTH OBTAINED AFTER 48 HOURS, INCUBATION TO CONTINUE FOR 3 DAYS. 01/30/18 14:20 Blood - Peripheral Venous Blood Culture - Preliminary NO GROWTH OBTAINED AFTER 48 HOURS, INCUBATION TO CONTINUE FOR 3 DAYS. 01/30/18 21:40 Urine - Urine Clean Catch Urine Culture - Final NO GROWTH OBTAINED Assessment: 42 year old male with no pmhx admitted with RUE pain and swelling. comes in to the ER with c/o of left bicep edema, redness and pain. Patient states that the left upper arm pain began on 01/29 and became progressively p A left upper extremity doppler negative for DVT. No other areas of redness or edema noted. There is no drainage. He denies any animal/tick bites. There is a very small <0.5cm circular pimple on center of wound. Plan: 1. LUE cellulitis - Antibiotics unysan, clinda per ID - CT noted - Re image tomorrow? 2. dvt - heparin sq Visit type - Emergency Visit Emergency Visit: Yes ED Registration Date: 01/30/18 Care time: The patient presented to the Emergency Department on the above date and was hospitalized for further evaluation of their emergent condition. - New Patient This patient is new to me today: Yes Date on this admission: 02/01/18 - Critical Care Critical Care patient: No
[2018-02-02] MEDS ORDERED: PT OWN MED DRAWER 7, Y5N ONE ×2 (01:39→09:44)
[2018-02-02] MEDS: AMPICILLIN NA/SULBACTAM NA 3 GM in SODIUM CHLORIDE 100 ML IVPB SCH ×3 (02:06→17:45)
[2018-02-02] MEDS: CLINDAMYCIN 600MG PREMIX IVPB 600 MG/50 ML BAG IVPB SCH ×3 (02:59→17:05)
[2018-02-02 07:57] LABS: BASO % 0.6 % (0-2.0); EOS % 2.3 % (0-4.5); HEMATOCRIT 39.5 % (35.4-49); HEMOGLOBIN 13.6 GM/dL (11.7-16.9); LYMPH % 18.1 % (8-40); MCH 30.6 pg (25.7-33.7); MCHC 34.6 g/dl (32.0-35.9); MEAN CELL VOLUME 88.5 fl (80-96); MEAN PLT VOLUME 9.2 fl (7.5-11.1); MONO % 7.5 % (3.8-10.2); NEUT % 71.5 % (42.8-82.8); PLATELET COUNT 240 K/MM3 (134-434); RBC 4.46 M/mm3 (4.00-5.60); RDW 12.9 % (11.9-15.9); WHITE BLOOD COUNT 8.5 K/mm3 (4.0-10.0)
[2018-02-02 08:21] LABS: ANION GAP 8 (8-16); BLOOD UREA NITROGEN 15 mg/dL (7-18); CALCIUM 8.4 mg/dL (8.5-10.1); CHLORIDE 108 mmol/L (98-107); CO2 25 mmol/L (21-32); GLUCOSE,RANDOM 108 mg/dL (74-106); POTASSIUM 4.1 mmol/L (3.5-5.1); SODIUM 141 mmol/L (136-145)
[2018-02-02 08:23] LABS: CREATININE 0.6 mg/dL (0.7-1.3)
[2018-02-02] MEDS: ACETAMINOPHEN 325 MG TABLET (FP) PO PRN ×2 (08:49→15:24)
--- NOTE | 2018-02-02 11:10 | PN ---
Progress Note, Physician History of Present Illness: patient stable erythema has decreased localized induration - Current Medication List Current Medications: Active Medications Acetaminophen (Tylenol -) 650 mg PO Q6H PRN PRN Reason: PAIN LEVEL 7 - 10 Last Admin: 02/02/18 08:49 Dose: 650 mg Ampicillin Sodium/Sulbactam (Sodium 3 gm/ Sodium Chloride) 100 mls @ 200 mls/ hr IVPB Q8H-IV ROLDAN Last Admin: 02/02/18 10:18 Dose: 200 mls/hr Clindamycin Phosphate (Cleocin 600 Mg Premix Ivpb -) 600 mg in 50 mls @ 100 mls /hr IVPB Q8H-IV ROLDAN; Protocol Last Admin: 02/02/18 09:45 Dose: 100 mls/hr Morphine Sulfate (Morphine Sulfate) 0.5 mg IM Q6H PRN PRN Reason: PAIN LEVEL 7 - 10 Tramadol HCl (Ultram -) 50 mg PO Q4H PRN PRN Reason: PAIN LEVEL 4 - 6 Last Admin: 01/30/18 18:16 Dose: 50 mg - Objective Vital Signs: Vital Signs Temperature 98.2 F 02/02/18 09:00 Pulse Rate 82 02/02/18 09:00 Respiratory Rate 18 02/02/18 09:00 Blood Pressure 123/78 02/02/18 09:00 O2 Sat by Pulse Oximetry (%) 94 L 02/02/18 09:00 Constitutional: Yes: No Distress, Calm Cardiovascular: Yes: Regular Rate and Rhythm Respiratory: Yes: Regular, CTA Bilaterally Gastrointestinal: Yes: Normal Bowel Sounds, Soft Musculoskeletal: Yes: Other Extremities: Yes: Erythema, Other Neurological: Yes: Alert, Oriented Psychiatric: Yes: Alert, Oriented Labs: CBC, BMP 02/02/18 06:20 02/02/18 06:20 Assessment/Plan swelling of the left arm cellulitis of the left arm leukocytosis pain wbc has decreased plan continue abx surgery consult probably needs i and d rest as per the team erythema has improved cellulitis has improved
--- NOTE | 2018-02-02 15:41 | PN ---
Progress Note (short form) - Note Progress Note: SUBJECTIVE: The patient was seen and examined at the bedside, he states he is feeling better today F/u surgery consult Current Medications Generic Name Dose Route Start Last Admin Trade Name Freq PRN Reason Stop Dose Admin Acetaminophen 650 mg 01/30/18 17:07 02/02/18 15:24 Tylenol - PO 650 mg Q6H PRN Administration PAIN LEVEL 7 - 10 Ampicillin Sodium/Sulbactam 100 mls @ 200 mls/hr 01/30/18 16:00 02/02/18 10: 18 Sodium 3 gm/ Sodium Chloride IVPB 200 mls/hr Q8H-IV ROLDAN Administration Clindamycin Phosphate 600 mg in 50 mls @ 100 mls/hr 02/01/18 10:45 02/02/18 09:45 Cleocin 600 Mg Premix Ivpb - IVPB 100 mls/hr Q8H-IV ROLDAN Administration Protocol Morphine Sulfate 0.5 mg 01/30/18 17:12 Morphine Sulfate IM Q6H PRN PAIN LEVEL 7 - 10 Tramadol HCl 50 mg 01/30/18 17:11 01/30/18 18:16 Ultram - PO 50 mg Q4H PRN Administration PAIN LEVEL 4 - 6 OBJECTIVE: Vital Signs Period Temp Pulse Resp BP Sys/Carlton Pulse Ox Last 24 Hr 98.0 F-98.6 F 82-88 18-18 114-130/63-78 94-95 PE Neuro: alert, awake, cn 2-12intact Pulm: CTAB CV: s1 s2 rrr Abd: s nt nd + bs Ext: LUE with induration and area of fluctuance CBCD WBC 8.5 K/mm3 (4.0-10.0) 02/02/18 06:20 RBC 4.46 M/mm3 (4.00-5.60) 02/02/18 06:20 Hgb 13.6 GM/dL (11.7-16.9) 02/02/18 06:20 Hct 39.5 % (35.4-49) 02/02/18 06:20 MCV 88.5 fl (80-96) 02/02/18 06:20 MCHC 34.6 g/dl (32.0-35.9) 02/02/18 06:20 RDW 12.9 % (11.9-15.9) 02/02/18 06:20 Plt Count 240 K/MM3 (134-434) 02/02/18 06:20 MPV 9.2 fl (7.5-11.1) 02/02/18 06:20 CMP Sodium 141 mmol/L (136-145) 02/02/18 06:20 Potassium 4.1 mmol/L (3.5-5.1) 02/02/18 06:20 Chloride 108 mmol/L (98-107) H 02/02/18 06:20 Carbon Dioxide 25 mmol/L (21-32) 02/02/18 06:20 Anion Gap 8 (8-16) 02/02/18 06:20 BUN 15 mg/dL (7-18) D 02/02/18 06:20 Creatinine 0.6 mg/dL (0.7-1.3) L 02/02/18 06:20 Creat Clearance w eGFR > 60 (>60) 02/02/18 06:20 Random Glucose 108 mg/dL (74-106) H 02/02/18 06:20 Calcium 8.4 mg/dL (8.5-10.1) L 02/02/18 06:20 Total Bilirubin 0.5 mg/dL (0.2-1.0) D 02/01/18 06:00 AST 14 U/L (15-37) L D 02/01/18 06:00 ALT 32 U/L (12-78) D 02/01/18 06:00 Alkaline Phosphatase 58 U/L (45-117) D 02/01/18 06:00 Total Protein 6.4 g/dl (6.4-8.2) 02/01/18 06:00 Albumin 3.2 g/dl (3.4-5.0) L D 02/01/18 06:00 CARDIAC ENZYMES Troponin I < 0.02 ng/ml (0.00-0.05) 01/30/18 18:00 Microbiology 01/30/18 14:20 Blood - Peripheral Venous Blood Culture - Preliminary NO GROWTH OBTAINED AFTER 72 HOURS, INCUBATION TO CONTINUE FOR 2 DAYS. 01/30/18 14:20 Blood - Peripheral Venous Blood Culture - Preliminary NO GROWTH OBTAINED AFTER 72 HOURS, INCUBATION TO CONTINUE FOR 2 DAYS. 01/30/18 21:40 Urine - Urine Clean Catch Urine Culture - Final NO GROWTH OBTAINED Assessment: This is a 42 year old male with no significant PMHx who presented to the ED with left bicep edema, erythema, pain. Plan: 1) Left arm cellulitis/abscess - For I&D in OR tomorrow - Continue Unasyn - Continue Clindamycin - Pain management - Appreciate ID consult - Appreciate surgery consult 2) F/E/N: - Regular diet - NPO after midnight 3) Prophylaxis: - OOB ambulating - SCDs bilaterally 4) Dispo: - Requires continued inpatient care CODE STATUS: FULL CODE Visit type - Emergency Visit Emergency Visit: Yes ED Registration Date: 01/30/18 Care time: The patient presented to the Emergency Department on the above date and was hospitalized for further evaluation of their emergent condition. - New Patient This patient is new to me today: Yes Date on this admission: 02/02/18 - Critical Care Critical Care patient: No
--- NOTE | 2018-02-02 16:25 | CONSULT ---
- Consultation REQUESTING PROVIDER: CONSULT REQUEST: We have been asked to surgically evaluate this patient for ( specify). PCP:Bethanie Da Silva HISTORY OF PRESENT ILLNESS: PMHx: PSHx: Allergies Allergy/AdvReac Type Severity Reaction Status Date / Time No Known Allergies Allergy Verified 01/30/18 12:36 REVIEW OF SYSTEMS: CONSTITUTIONAL: Absent: fever, chills, diaphoresis, generalized weakness, malaise, loss of appetite, weight change CARDIOVASCULAR: Absent: chest pain, syncope, palpitations, irregular heart rate, lightheadedness , peripheral edema RESPIRATORY: Absent: cough, shortness of breath, dyspnea with exertion, wheezing, stridor, hemoptysis GASTROINTESTINAL: Absent: abdominal pain, abdominal distension, nausea, vomiting, diarrhea, constipation, melena, hematochezia GENITOURINARY: Absent: dysuria, frequency, urgency, hesitancy, hematuria, flank pain, genital pain MUSCULOSKELETAL: Absent: myalgia, arthralgia, joint swelling, back pain, neck pain SKIN: Absent: rash, itching, pallor HEMATOLOGIC/IMMUNOLOGIC: Absent: easy bleeding, easy bruising, lymphadenopathy NEUROLOGIC: Absent: headache, focal weakness, paresthesias, dizziness, unsteady gait, seizure, mental status changes, bladder or bowel incontinence PSYCHIATRIC: Absent: anxiety, depression, suicidal or homicidal ideation, hallucinations. PHYSICAL EXAM: GENERAL: Awake, alert, and fully oriented, in no acute distress. HEAD: Normal with no signs of trauma. EYES: PERRL, sclera anicteric, conjunctiva clear. NECK: Normal ROM, supple without lymphadenopathy, JVD, or masses. LUNGS: Clear to auscultation bilat anteriorly. No wheezes, and no crackles. No accessory muscle use. HEART: Regular rate and rhythm. No murmurs ABDOMEN: Soft, nontender, not distended, normoactive bowel sounds, no guarding, no rebound, no masses. No organomegaly. MUSCULOSKELETAL: Normal ROM at all joints. No bony deformities or tenderness. No CVA tenderness. UPPER EXTREMITIES: 2+ pulses, warm, well-perfused. No cyanosis. Cap refill <2 seconds. No peripheral edema. LOWER EXTREMITIES: 2+ pulses, warm, well-perfused. No calf tenderness. No peripheral edema. NEUROLOGICAL: Normal speech, gait not observed. PSYCH: Cooperative. Good eye contact. Appropriate mood and affect. SKIN: Warm, dry, normal turgor, no rashes or lesions noted. Vital Signs Temperature 98.2 F 02/02/18 09:00 Pulse Rate 82 02/02/18 09:00 Respiratory Rate 18 02/02/18 09:00 Blood Pressure 123/78 02/02/18 09:00 O2 Sat by Pulse Oximetry (%) 94 L 02/02/18 09:00 Lab Results WBC 8.5 K/mm3 (4.0-10.0) 02/02/18 06:20 RBC 4.46 M/mm3 (4.00-5.60) 02/02/18 06:20 Hgb 13.6 GM/dL (11.7-16.9) 02/02/18 06:20 Hct 39.5 % (35.4-49) 02/02/18 06:20 MCV 88.5 fl (80-96) 02/02/18 06:20 MCHC 34.6 g/dl (32.0-35.9) 02/02/18 06:20 RDW 12.9 % (11.9-15.9) 02/02/18 06:20 Plt Count 240 K/MM3 (134-434) 02/02/18 06:20 Sodium 141 mmol/L (136-145) 02/02/18 06:20 Potassium 4.1 mmol/L (3.5-5.1) 02/02/18 06:20 Chloride 108 mmol/L (98-107) H 02/02/18 06:20 Carbon Dioxide 25 mmol/L (21-32) 02/02/18 06:20 Anion Gap 8 (8-16) 02/02/18 06:20 BUN 15 mg/dL (7-18) D 02/02/18 06:20 Creatinine 0.6 mg/dL (0.7-1.3) L 02/02/18 06:20 Random Glucose 108 mg/dL (74-106) H 02/02/18 06:20 Calcium 8.4 mg/dL (8.5-10.1) L 02/02/18 06:20 IMP: soft tissue abscess LUE PLAN: I and D in OR 02/04/48; d/w patient in [place]. Juan Diego Cali MD FACS
[2018-02-03] MEDS: CLINDAMYCIN 600MG PREMIX IVPB 600 MG/50 ML BAG IVPB SCH ×3 (01:02→17:36)
[2018-02-03] MEDS: AMPICILLIN NA/SULBACTAM NA 3 GM in SODIUM CHLORIDE 100 ML IVPB SCH ×3 (01:28→18:14)
[2018-02-03] MEDS ORDERED: PT OWN MED DRAWER 7, Y5N ONE ×2 (09:05→17:34)
[2018-02-03] MEDS ORDERED: ONDANSETRON 4 MG/2 ML VIAL IVPUSH PRN (10:17)
[2018-02-03] MEDS ORDERED: LACTATED RINGERS SOLUTION 1,000 ML IV SCH (10:30)
[2018-02-03] MEDS ORDERED: PROPOFOL 20 ML ONE ×2 (10:52)
[2018-02-03] MEDS ORDERED: ONDANSETRON 4 MG/2 ML VIAL ONE (11:18)
[2018-02-03] MEDS ORDERED: DEXAMETHASONE SOD PHOSPHATE 4 MG/1 ML VIAL ONE (11:18)
[2018-02-03] MEDS ORDERED: oxyCODONE HCL 5 MG TABLET PO PRN (11:31)
[2018-02-03] MEDS ORDERED: KETOROLAC TROMETHAMINE 30 MG/1 ML VIAL IVPUSH PRN (11:32)
--- NOTE | 2018-02-03 11:32 | OP ---
Operative Note - Note: Operative Date: 02/03/18 Pre-Operative Diagnosis: abscess left upper arm Operation: incision/drainage abscess left upper arm Post-Operative Diagnosis: Same as Pre-op Surgeon: Juan Diego Cali Rocket Assembly Operator: Sarika Coughlin Anesthesiologist/LINING SEWER: Torey Carvajal Anesthesia: General Specimens Removed: culture only Estimated Blood Loss (mls): 5
--- NOTE | 2018-02-03 14:18 | PN ---
Progress Note (short form) - Note Progress Note: SUBJECTIVE: The patient was seen and examined at the bedside, he states he has pain on his left upper extremity S/p I&D today Current Medications Generic Name Dose Route Start Last Admin Trade Name Freq PRN Reason Stop Dose Admin Acetaminophen 650 mg 01/30/18 17:07 02/02/18 15:24 Tylenol - PO 650 mg Q6H PRN Administration PAIN LEVEL 7 - 10 Fentanyl 50 mcg 02/03/18 10:17 Sublimaze Injection - IVPUSH [id number] PRN PAIN-PACU ORDER X 4 DOSES ONLY Ampicillin Sodium/Sulbactam 100 mls @ 200 mls/hr 01/30/18 16:00 02/03/18 09: 37 Sodium 3 gm/ Sodium Chloride IVPB 200 mls/hr Q8H-IV ROLDAN Administration Clindamycin Phosphate 600 mg in 50 mls @ 100 mls/hr 02/01/18 10:45 02/03/18 09:06 Cleocin 600 Mg Premix Ivpb - IVPB 100 mls/hr Q8H-IV ROLDAN Administration Protocol Ketorolac Tromethamine 30 mg 02/03/18 11:32 02/03/18 11:57 Toradol Injection - IVPUSH 02/08/18 17:59 30 mg Q8H-IV PRN Administration PAIN LEVEL 1 - 3 Morphine Sulfate 0.5 mg 01/30/18 17:12 Morphine Sulfate IM Q6H PRN PAIN LEVEL 7 - 10 Ondansetron HCl 4 mg 02/03/18 10:17 Zofran Injection IVPUSH Q6H PRN NAUSEA AND/OR VOMITING Oxycodone HCl 5 mg 02/03/18 11:31 Roxicodone - PO Q6H PRN PAIN LEVEL 1-5 Oxycodone HCl 10 mg 02/03/18 11:32 Roxicodone - PO Q6H PRN PAIN LEVEL 6-10 OBJECTIVE: Vital Signs Period Temp Pulse Resp BP Sys/Carlton Pulse Ox Last 24 Hr 97.3 F-98.3 F 65-78 16-20 104-138/60-86 95-99 PE Neuro: alert, awake, cn 2-12intact Pulm: CTAB CV: s1 s2 rrr Abd: s nt nd + bs Ext: LUE with dressing, some dried blood on dressing CBCD WBC 8.5 K/mm3 (4.0-10.0) 02/02/18 06:20 RBC 4.46 M/mm3 (4.00-5.60) 02/02/18 06:20 Hgb 13.6 GM/dL (11.7-16.9) 02/02/18 06:20 Hct 39.5 % (35.4-49) 02/02/18 06:20 MCV 88.5 fl (80-96) 02/02/18 06:20 MCHC 34.6 g/dl (32.0-35.9) 02/02/18 06:20 RDW 12.9 % (11.9-15.9) 02/02/18 06:20 Plt Count 240 K/MM3 (134-434) 02/02/18 06:20 MPV 9.2 fl (7.5-11.1) 02/02/18 06:20 CMP Sodium 141 mmol/L (136-145) 02/02/18 06:20 Potassium 4.1 mmol/L (3.5-5.1) 02/02/18 06:20 Chloride 108 mmol/L (98-107) H 02/02/18 06:20 Carbon Dioxide 25 mmol/L (21-32) 02/02/18 06:20 Anion Gap 8 (8-16) 02/02/18 06:20 BUN 15 mg/dL (7-18) D 02/02/18 06:20 Creatinine 0.6 mg/dL (0.7-1.3) L 02/02/18 06:20 Creat Clearance w eGFR > 60 (>60) 02/02/18 06:20 Random Glucose 108 mg/dL (74-106) H 02/02/18 06:20 Calcium 8.4 mg/dL (8.5-10.1) L 02/02/18 06:20 Total Bilirubin 0.5 mg/dL (0.2-1.0) D 02/01/18 06:00 AST 14 U/L (15-37) L D 02/01/18 06:00 ALT 32 U/L (12-78) D 02/01/18 06:00 Alkaline Phosphatase 58 U/L (45-117) D 02/01/18 06:00 Total Protein 6.4 g/dl (6.4-8.2) 02/01/18 06:00 Albumin 3.2 g/dl (3.4-5.0) L D 02/01/18 06:00 CARDIAC ENZYMES Troponin I < 0.02 ng/ml (0.00-0.05) 01/30/18 18:00 Microbiology 01/30/18 14:20 Blood - Peripheral Venous Blood Culture - Preliminary NO GROWTH OBTAINED AFTER 72 HOURS, INCUBATION TO CONTINUE FOR 2 DAYS. 01/30/18 14:20 Blood - Peripheral Venous Blood Culture - Preliminary NO GROWTH OBTAINED AFTER 72 HOURS, INCUBATION TO CONTINUE FOR 2 DAYS. 01/30/18 21:40 Urine - Urine Clean Catch Urine Culture - Final NO GROWTH OBTAINED Assessment: This is a 42 year old male with no significant PMHx who presented to the ED with left bicep edema, erythema, pain. Plan: 1) Left arm cellulitis/abscess - S/p I&D today - Continue Unasyn - Continue Clindamycin - Pain management - Appreciate ID consult - Appreciate surgery consult 2) F/E/N: - Regular diet 3) Prophylaxis: - OOB ambulating - SCDs bilaterally 4) Dispo: - Requires continued inpatient care CODE STATUS: FULL CODE Visit type - Emergency Visit Emergency Visit: Yes ED Registration Date: 01/30/18 Care time: The patient presented to the Emergency Department on the above date and was hospitalized for further evaluation of their emergent condition. - New Patient This patient is new to me today: No - Critical Care Critical Care patient: No
[2018-02-03] MEDS ORDERED: ACETAMINOPHEN 325 MG TABLET (FP) ONE (14:24)
[2018-02-03] MEDS: oxyCODONE HCL 5 MG TABLET PO PRN (14:26)
[2018-02-03] MEDS: ACETAMINOPHEN 325 MG TABLET (FP) PO PRN (14:27)
--- NOTE | 2018-02-03 14:57 | PN ---
Progress Note, Physician History of Present Illness: stable I and d done of the abscess - Current Medication List Current Medications: Active Medications Acetaminophen (Tylenol -) 650 mg PO Q6H PRN PRN Reason: PAIN LEVEL 7 - 10 Last Admin: 02/03/18 14:27 Dose: 650 mg Fentanyl (Sublimaze Injection -) 50 mcg IVPUSH [id number] PRN PRN Reason: PAIN-PACU ORDER X 4 DOSES ONLY Ampicillin Sodium/Sulbactam (Sodium 3 gm/ Sodium Chloride) 100 mls @ 200 mls/ hr IVPB Q8H-IV ROLDAN Last Admin: 02/03/18 09:37 Dose: 200 mls/hr Clindamycin Phosphate (Cleocin 600 Mg Premix Ivpb -) 600 mg in 50 mls @ 100 mls /hr IVPB Q8H-IV ROLDAN; Protocol Last Admin: 02/03/18 09:06 Dose: 100 mls/hr Ketorolac Tromethamine (Toradol Injection -) 30 mg IVPUSH Q8H-IV PRN PRN Reason: PAIN LEVEL 1 - 3 Stop: 02/08/18 17:59 Last Admin: 02/03/18 11:57 Dose: 30 mg Morphine Sulfate (Morphine Sulfate) 0.5 mg IM Q6H PRN PRN Reason: PAIN LEVEL 7 - 10 Ondansetron HCl (Zofran Injection) 4 mg IVPUSH Q6H PRN PRN Reason: NAUSEA AND/OR VOMITING Oxycodone HCl (Roxicodone -) 5 mg PO Q6H PRN PRN Reason: PAIN LEVEL 1-5 Oxycodone HCl (Roxicodone -) 10 mg PO Q6H PRN PRN Reason: PAIN LEVEL 6-10 Last Admin: 02/03/18 14:26 Dose: 10 mg - Objective Vital Signs: Vital Signs Temperature 97.9 F 02/03/18 14:20 Pulse Rate 70 02/03/18 14:20 Respiratory Rate 20 02/03/18 14:20 Blood Pressure 115/70 02/03/18 14:20 O2 Sat by Pulse Oximetry (%) 96 02/03/18 13:39 Constitutional: Yes: No Distress, Calm Cardiovascular: Yes: Regular Rate and Rhythm Respiratory: Yes: Regular, CTA Bilaterally Gastrointestinal: Yes: Normal Bowel Sounds, Soft Musculoskeletal: Yes: WNL Extremities: Yes: Other Wound/Incision: Yes: Dressing Dry and Intact Neurological: Yes: Alert, Oriented Psychiatric: Yes: Alert, Oriented Labs: CBC, BMP 02/02/18 06:20 02/02/18 06:20 Assessment/Plan swelling of the left arm cellulitis of the left arm leukocytosis pain wbc has decreased plan continue abx await for culture report rest as per the team
[2018-02-04] MEDS: AMPICILLIN NA/SULBACTAM NA 3 GM in SODIUM CHLORIDE 100 ML IVPB SCH ×3 (01:12→18:03)
[2018-02-04] MEDS: CLINDAMYCIN 600MG PREMIX IVPB 600 MG/50 ML BAG IVPB SCH ×2 (01:25→10:43)
[2018-02-04] MEDS: ACETAMINOPHEN 325 MG TABLET (FP) PO PRN ×2 (07:29→14:26)
[2018-02-04] MEDS: oxyCODONE HCL 5 MG TABLET PO PRN ×2 (07:31→14:27)
--- NOTE | 2018-02-04 07:49 | OP ---
DATE OF OPERATION: 02/03/2018 PREOPERATIVE DIAGNOSIS: Soft tissue abscess, left upper arm. POSTOPERATIVE DIAGNOSIS: Soft tissue abscess, left upper arm. PROCEDURE: Incision and drainage of abscess of left upper arm. SURGEON: Juan Diego Cali MD TURNTABLE OPERATOR: LAURA Roman ANESTHESIA: General. OPERATIVE FINDINGS: There was a soft tissue abscess over the biceps of the left upper extremity. The rest of the findings were unremarkable. DESCRIPTION OF PROCEDURE: Patient was placed on the operating room table in supine position with the left upper extremity abducted at the side. After the induction of general anesthesia, the patient's left upper extremity was prepped with ChloraPrep and draped in sterile fashion, and then incision was made with a scalpel over the area of fluctuance. Purulent drainage was sent for culture and sensitivity to Microbiology. All loculations were broken up using blunt dissection, and then the wound was copiously irrigated with 50% saline and 50% hydrogen peroxide. Hemostasis was secured with electrocautery, and the wound was packed with 1/2-inch Iodoform gauze followed by dry sterile dressings. The procedure was terminated at this point and the patient aroused from general anesthesia and transferred to the postanesthesia care unit in stable condition, awake and alert. ESTIMATED BLOOD LOSS: 5 mL. REPLACEMENTS: Crystalloid. DRAINS: None. SPECIMENS: Culture and sensitivity to Microbiology. I, Juan Diego Cali, was physically present in the operating room from the time the patient was placed on the operating table until he was transferred to the postanesthesia care unit in my accompaniment. MD MERARY Izaguirre/[id number] MTDD
[2018-02-04] MEDS ORDERED: PT OWN MED DRAWER 7, Y5N ONE ×2 (09:49→17:57)
--- NOTE | 2018-02-04 13:00 | PN ---
Progress Note, Physician History of Present Illness: stable doing well no issues no complaints - Current Medication List Current Medications: Active Medications Acetaminophen (Tylenol -) 650 mg PO Q6H PRN PRN Reason: PAIN LEVEL 7 - 10 Last Admin: 02/04/18 07:29 Dose: 650 mg Fentanyl (Sublimaze Injection -) 50 mcg IVPUSH [id number] PRN PRN Reason: PAIN-PACU ORDER X 4 DOSES ONLY Ampicillin Sodium/Sulbactam (Sodium 3 gm/ Sodium Chloride) 100 mls @ 200 mls/ hr IVPB Q8H-IV ROLDAN Last Admin: 02/04/18 09:53 Dose: 200 mls/hr Clindamycin Phosphate (Cleocin 600 Mg Premix Ivpb -) 600 mg in 50 mls @ 100 mls /hr IVPB Q8H-IV ROLDAN; Protocol Last Admin: 02/04/18 10:43 Dose: 100 mls/hr Ketorolac Tromethamine (Toradol Injection -) 30 mg IVPUSH Q8H-IV PRN PRN Reason: PAIN LEVEL 1 - 3 Stop: 02/08/18 17:59 Last Admin: 02/03/18 11:57 Dose: 30 mg Morphine Sulfate (Morphine Sulfate) 0.5 mg IM Q6H PRN PRN Reason: PAIN LEVEL 7 - 10 Ondansetron HCl (Zofran Injection) 4 mg IVPUSH Q6H PRN PRN Reason: NAUSEA AND/OR VOMITING Oxycodone HCl (Roxicodone -) 5 mg PO Q6H PRN PRN Reason: PAIN LEVEL 1-5 Oxycodone HCl (Roxicodone -) 10 mg PO Q6H PRN PRN Reason: PAIN LEVEL 6-10 Last Admin: 02/04/18 07:31 Dose: 10 mg - Objective Vital Signs: Vital Signs Temperature 97.6 F 02/04/18 10:00 Pulse Rate 65 02/04/18 10:00 Respiratory Rate 20 02/04/18 10:00 Blood Pressure 121/77 02/04/18 10:00 O2 Sat by Pulse Oximetry (%) 95 02/04/18 09:00 Constitutional: Yes: No Distress, Calm Cardiovascular: Yes: Regular Rate and Rhythm Respiratory: Yes: Regular, CTA Bilaterally Musculoskeletal: Yes: WNL Extremities: Yes: Other Wound/Incision: Yes: Dressing Dry and Intact Neurological: Yes: Alert, Oriented Psychiatric: Yes: Alert, Oriented Labs: CBC, BMP 02/02/18 06:20 02/02/18 06:20 Assessment/Plan swelling of the left arm cellulitis of the left arm leukocytosis pain wbc has decreased plan continue abx await for culture report will the dose of clinda rest as per the team
--- NOTE | 2018-02-04 14:39 | PN ---
Progress Note (short form) - Note Progress Note: Attending Surgeon POD #1 No c/o VSS AF wound-open and w/o drainage; induration is less but persists cultures noted IMP: improved PLAN: LWC/antibiotics. Juan Diego Cali MD FACS
--- NOTE | 2018-02-04 15:58 | PN ---
Progress Note (short form) - Note Progress Note: SUBJECTIVE: The patient was seen and examined at the bedside, he has no complaints at this time Wound culture with presumptive MRSA, awaiting final c/s Current Medications Generic Name Dose Route Start Last Admin Trade Name Freq PRN Reason Stop Dose Admin Acetaminophen 650 mg 01/30/18 17:07 02/04/18 14:26 Tylenol - PO 650 mg Q6H PRN Administration PAIN LEVEL 7 - 10 Clindamycin HCl 300 mg 02/04/18 18:00 Cleocin - PO Q6HPO ROLDAN Fentanyl 50 mcg 02/03/18 10:17 Sublimaze Injection - IVPUSH [id number] PRN PAIN-PACU ORDER X 4 DOSES ONLY Ampicillin Sodium/Sulbactam 100 mls @ 200 mls/hr 01/30/18 16:00 02/04/18 09: 53 Sodium 3 gm/ Sodium Chloride IVPB 200 mls/hr Q8H-IV ROLDAN Administration Ketorolac Tromethamine 30 mg 02/03/18 11:32 02/03/18 11:57 Toradol Injection - IVPUSH 02/08/18 17:59 30 mg Q8H-IV PRN Administration PAIN LEVEL 1 - 3 Morphine Sulfate 0.5 mg 01/30/18 17:12 Morphine Sulfate IM Q6H PRN PAIN LEVEL 7 - 10 Ondansetron HCl 4 mg 02/03/18 10:17 Zofran Injection IVPUSH Q6H PRN NAUSEA AND/OR VOMITING Oxycodone HCl 5 mg 02/03/18 11:31 Roxicodone - PO Q6H PRN PAIN LEVEL 1-5 Oxycodone HCl 10 mg 02/03/18 11:32 02/04/18 14:27 Roxicodone - PO 10 mg Q6H PRN Administration PAIN LEVEL 6-10 OBJECTIVE: Vital Signs Period Temp Pulse Resp BP Sys/Carlton Pulse Ox Last 24 Hr 97.5 F-98.2 F 65-88 20-20 107-121/53-77 95-98 PE Neuro: alert, awake, cn 2-12intact Pulm: CTAB CV: s1 s2 rrr Abd: s nt nd + bs Ext: LUE with dressing c/d/i CBCD WBC 8.5 K/mm3 (4.0-10.0) 02/02/18 06:20 RBC 4.46 M/mm3 (4.00-5.60) 02/02/18 06:20 Hgb 13.6 GM/dL (11.7-16.9) 02/02/18 06:20 Hct 39.5 % (35.4-49) 02/02/18 06:20 MCV 88.5 fl (80-96) 02/02/18 06:20 MCHC 34.6 g/dl (32.0-35.9) 02/02/18 06:20 RDW 12.9 % (11.9-15.9) 02/02/18 06:20 Plt Count 240 K/MM3 (134-434) 02/02/18 06:20 MPV 9.2 fl (7.5-11.1) 02/02/18 06:20 CMP Sodium 141 mmol/L (136-145) 02/02/18 06:20 Potassium 4.1 mmol/L (3.5-5.1) 02/02/18 06:20 Chloride 108 mmol/L (98-107) H 02/02/18 06:20 Carbon Dioxide 25 mmol/L (21-32) 02/02/18 06:20 Anion Gap 8 (8-16) 02/02/18 06:20 BUN 15 mg/dL (7-18) D 02/02/18 06:20 Creatinine 0.6 mg/dL (0.7-1.3) L 02/02/18 06:20 Creat Clearance w eGFR > 60 (>60) 02/02/18 06:20 Random Glucose 108 mg/dL (74-106) H 02/02/18 06:20 Calcium 8.4 mg/dL (8.5-10.1) L 02/02/18 06:20 Total Bilirubin 0.5 mg/dL (0.2-1.0) D 02/01/18 06:00 AST 14 U/L (15-37) L D 02/01/18 06:00 ALT 32 U/L (12-78) D 02/01/18 06:00 Alkaline Phosphatase 58 U/L (45-117) D 02/01/18 06:00 Total Protein 6.4 g/dl (6.4-8.2) 02/01/18 06:00 Albumin 3.2 g/dl (3.4-5.0) L D 02/01/18 06:00 CARDIAC ENZYMES Troponin I < 0.02 ng/ml (0.00-0.05) 01/30/18 18:00 Microbiology 01/30/18 14:20 Blood - Peripheral Venous Blood Culture - Final NO GROWTH AFTER 5 DAYS INCUBATION 01/30/18 14:20 Blood - Peripheral Venous Blood Culture - Final NO GROWTH AFTER 5 DAYS INCUBATION 02/03/18 11:10 Abscess Gram Stain - Final 02/03/18 11:10 Abscess Wound Culture - Preliminary Presumptive Mrsa (Pbp2a Pos) 01/30/18 21:40 Urine - Urine Clean Catch Urine Culture - Final NO GROWTH OBTAINED Assessment: This is a 42 year old male with no significant PMHx who presented to the ED with left bicep edema, erythema, pain. Plan: 1) Left arm cellulitis/abscess - S/p I&D on 02/03 - Awaiting final wound culture: presumptive MRSA - Continue Unasyn - Continue Clindamycin - Pain management - Appreciate ID consult - Appreciate surgery consult 2) F/E/N: - Regular diet 3) Prophylaxis: - OOB ambulating - SCDs bilaterally 4) Dispo: - Requires continued inpatient care CODE STATUS: FULL CODE Visit type - Emergency Visit Emergency Visit: Yes ED Registration Date: 01/30/18 Care time: The patient presented to the Emergency Department on the above date and was hospitalized for further evaluation of their emergent condition. - New Patient This patient is new to me today: No - Critical Care Critical Care patient: No
[2018-02-04] MEDS: CLINDAMYCIN HCL 150 MG CAPSULE (FP) PO SCH (18:04)
[2018-02-05] MEDS: CLINDAMYCIN HCL 150 MG CAPSULE (FP) PO SCH ×5 (00:25→23:40)
[2018-02-05] MEDS: AMPICILLIN NA/SULBACTAM NA 3 GM in SODIUM CHLORIDE 100 ML IVPB SCH ×3 (01:06→17:40)
--- NOTE | 2018-02-05 09:14 | PN ---
Progress Note (short form) - Note Progress Note: Attending Surgeon POD #2 No c/o VSS AF wound-clean and granulating; no odor 5x4x1 cm. cultures noted IMP: doing well PLAN: wound care w/ VNS; after 5 days will only need showers and DSD and office f/u. Juan Diego Cali MD FACS
[2018-02-05] MEDS ORDERED: PT OWN MED DRAWER 7, Y5N ONE ×3 (10:51→17:30)
[2018-02-05 11:34] LABS: BASO % 0.7 % (0-2.0); EOS % 1.8 % (0-4.5); HEMATOCRIT 43.8 % (35.4-49); MCH 30.5 pg (25.7-33.7); MCHC 34.2 g/dl (32.0-35.9); NEUT % 68.5 % (42.8-82.8); PLATELET COUNT 297 K/MM3 (134-434); RBC 4.92 M/mm3 (4.00-5.60); RDW 12.7 % (11.9-15.9); WHITE BLOOD COUNT 9.1 K/mm3 (4.0-10.0)
--- NOTE | 2018-02-05 12:21 | DS ---
Physical Exam: SUBJECTIVE: Patient seen and examined OBJECTIVE: Vital Signs Period Temp Pulse Resp BP Sys/Carlton Pulse Ox Last 24 Hr 97.9 F-98.4 F 68-73 20-20 111-150/70-89 96 PHYSICAL EXAM GENERAL: The patient is awake, alert, and fully oriented, in no acute distress. HEAD: Normal with no signs of trauma. EYES: PERRL, extraocular movements intact, sclera anicteric, conjunctiva clear. ENT: Ears normal, nares patent, oropharynx clear without exudates, moist mucous membranes. NECK: Trachea midline, full range of motion, supple. LUNGS: Breath sounds equal, clear to auscultation bilaterally, no wheezes, no crackles, no accessory muscle use. HEART: Regular rate and rhythm, S1, S2 without murmur, rub or gallop. ABDOMEN: Soft, nontender, nondistended, normoactive bowel sounds, no guarding, no rebound, no hepatosplenomegaly, no masses. EXTREMITIES: 2+ pulses, warm, well-perfused, no edema. NEUROLOGICAL: Cranial nerves II through XII grossly intact. Normal speech, gait not observed. PSYCH: Normal mood, normal affect. SKIN: Warm, dry, normal turgor, no rashes or lesions noted. LABS Laboratory Results - last 24 hr 01/30/18 02/05/18 20:05 10:35 WBC 9.1 RBC 4.92 Hgb 15.0 D Hct 43.8 MCV 89.0 MCH 30.5 MCHC 34.2 RDW 12.7 Plt Count 297 D MPV 9.0 Absolute Neuts (auto) 6.2 Neutrophils % 68.5 Lymphocytes % 22.0 D Monocytes % 7.0 Eosinophils % 1.8 Basophils % 0.7 Nucleated RBC % 0 Lyme IgM Quantitation <0.80 HOSPITAL COURSE: Date of Admission:01/30/18 Date of Discharge: 02/05/18 Discharged on clindamycin PO to complete total of 14 days of treatment. Minutes to complete discharge: 35 Discharge Summary Reason For Visit: CELLULITIS Current Active Problems Cellulitis (Acute) Condition: Improved - Instructions Diet, Activity, Other Instructions: 1. A prescription has been sent to your pharmacy for clindamycin which is an antibiotic. Take this medication as directed and be sure to FINISH all the medication. 2. You should follow up with your primary care provider within 72 hours. 3. Please read carefully your surgeon's instructions as follows: Dr. Cali/Surgical Discharge Instructions Dear CASTILLO SO, Post Operative Instructions Physical activity Resume your normal everyday activity as tolerated no heavy lifting or exercise until seen by your surgeon. You may walk unlimited amounts of and climb stairs. You may resume driving the car when you feel safe and comfortable behind the wheel. Wound care You may shower daily and repack your wound with iodoform, cover with gauze, kerlix and dianelys wrap Diet There are no dietary restrictions. Eat healthy, high-fiber foods. Drink 6 to 8 glasses of liquid each day. This will assist in keeping your bowels are regular. Pain management You may take Tylenol or acetaminophen or Ibuprofen (for example, Motrin, Advil etc.) Any pain prescription medication ordered should be taken as prescribed for moderate to severe pain. Call Dr. Cali for any of the following: Severe pain not relieved by medication Fever of 101 or higher Excessive bleeding or drainage on dressing Call the office at [phone] for a post operative appointment in 7 - 10 days. Referrals: Juan Diego Cali MD [Staff Physician] - Disposition: HOME - Home Medications Comprehensive Discharge Medication List: Ambulatory Orders Clindamycin [Cleocin -] 300 mg PO Q6HPO #24 capsule 02/05/18 - Discharge Referral Referred to [facility] No
--- NOTE | 2018-02-05 12:55 | PN ---
Progress Note, Physician History of Present Illness: patient doing well no complaints feels better - Current Medication List Current Medications: Active Medications Acetaminophen (Tylenol -) 650 mg PO Q6H PRN PRN Reason: PAIN LEVEL 7 - 10 Last Admin: 02/04/18 14:26 Dose: 650 mg Clindamycin HCl (Cleocin -) 300 mg PO Q6HPO ROLDAN Last Admin: 02/05/18 11:00 Dose: 300 mg Fentanyl (Sublimaze Injection -) 50 mcg IVPUSH [id number] PRN PRN Reason: PAIN-PACU ORDER X 4 DOSES ONLY Ampicillin Sodium/Sulbactam (Sodium 3 gm/ Sodium Chloride) 100 mls @ 200 mls/ hr IVPB Q8H-IV ROLDAN Last Admin: 02/05/18 10:57 Dose: 200 mls/hr Ketorolac Tromethamine (Toradol Injection -) 30 mg IVPUSH Q8H-IV PRN PRN Reason: PAIN LEVEL 1 - 3 Stop: 02/08/18 17:59 Last Admin: 02/03/18 11:57 Dose: 30 mg Ondansetron HCl (Zofran Injection) 4 mg IVPUSH Q6H PRN PRN Reason: NAUSEA AND/OR VOMITING Oxycodone HCl (Roxicodone -) 5 mg PO Q6H PRN PRN Reason: PAIN LEVEL 1-5 Oxycodone HCl (Roxicodone -) 10 mg PO Q6H PRN PRN Reason: PAIN LEVEL 6-10 Last Admin: 02/04/18 14:27 Dose: 10 mg - Objective Vital Signs: Vital Signs Temperature 98.4 F 02/05/18 05:00 Pulse Rate 72 02/05/18 05:00 Respiratory Rate 20 02/05/18 05:00 Blood Pressure 111/70 02/05/18 05:00 O2 Sat by Pulse Oximetry (%) 96 02/04/18 20:39 Constitutional: Yes: No Distress, Calm Cardiovascular: Yes: Regular Rate and Rhythm Respiratory: Yes: Regular, CTA Bilaterally Gastrointestinal: Yes: Normal Bowel Sounds, Soft Musculoskeletal: Yes: WNL Extremities: Yes: Erythema (of the arm resoled), Other Wound/Incision: Yes: Dressing Dry and Intact Neurological: Yes: Alert, Oriented Psychiatric: Yes: Alert, Oriented Labs: CBC, BMP 02/05/18 10:35 02/02/18 06:20 Assessment/Plan swelling of the left arm cellulitis of the left arm leukocytosis pain cx results noted plan if patient going home send home patient on bactrim ds bid for a period of 7 more days wound care rest as per the team
[2018-02-05 13:10] LABS: ANISOCYTOSIS 0; MACROCYTOSIS 0; PLATELET ESTIMATE NORMAL
[2018-02-06] MEDS: AMPICILLIN NA/SULBACTAM NA 3 GM in SODIUM CHLORIDE 100 ML IVPB SCH ×2 (01:06→10:24)
[2018-02-06] MEDS: CLINDAMYCIN HCL 150 MG CAPSULE (FP) PO SCH ×2 (05:41→13:34)
[2018-02-06] MEDS ORDERED: PT OWN MED DRAWER 7, Y5N ONE (10:17)
--- NOTE | 2018-02-06 13:18 | PN ---
Progress Note, Physician - Current Medication List Current Medications: Active Medications Acetaminophen (Tylenol -) 650 mg PO Q6H PRN PRN Reason: PAIN LEVEL 7 - 10 Last Admin: 02/04/18 14:26 Dose: 650 mg Clindamycin HCl (Cleocin -) 300 mg PO Q6HPO ROLDAN Last Admin: 02/06/18 05:41 Dose: 300 mg Fentanyl (Sublimaze Injection -) 50 mcg IVPUSH [id number] PRN PRN Reason: PAIN-PACU ORDER X 4 DOSES ONLY Ampicillin Sodium/Sulbactam (Sodium 3 gm/ Sodium Chloride) 100 mls @ 200 mls/ hr IVPB Q8H-IV ROLDAN Last Admin: 02/06/18 10:24 Dose: 200 mls/hr Ketorolac Tromethamine (Toradol Injection -) 30 mg IVPUSH Q8H-IV PRN PRN Reason: PAIN LEVEL 1 - 3 Stop: 02/08/18 17:59 Last Admin: 02/03/18 11:57 Dose: 30 mg Ondansetron HCl (Zofran Injection) 4 mg IVPUSH Q6H PRN PRN Reason: NAUSEA AND/OR VOMITING - Objective Vital Signs: Vital Signs Temperature 98 F 02/06/18 10:39 Pulse Rate 87 02/06/18 10:39 Respiratory Rate 18 02/06/18 10:39 Blood Pressure 136/82 02/06/18 10:39 O2 Sat by Pulse Oximetry (%) 95 02/05/18 20:39 Labs: CBC, BMP 02/05/18 10:35 02/02/18 06:20
[2018-02-06 13:48] VITALS: BP 144/83; PULSE 97; TEMP 98.2
--- NOTE | 2018-02-10 11:24 | PN ---
Progress Note, Physician History of Present Illness: patient doing well no complaints feels better - Objective Vital Signs: Vital Signs Temperature 98.2 F 02/06/18 13:46 Pulse Rate 97 H 02/06/18 13:46 Respiratory Rate 20 02/06/18 13:46 Blood Pressure 144/83 02/06/18 13:46 O2 Sat by Pulse Oximetry (%) 95 02/05/18 20:39 Constitutional: Yes: No Distress, Calm Cardiovascular: Yes: Regular Rate and Rhythm Respiratory: Yes: Regular, CTA Bilaterally Gastrointestinal: Yes: Normal Bowel Sounds, Soft Musculoskeletal: Yes: WNL Extremities: Yes: WNL Neurological: Yes: Alert, Oriented Labs: CBC, BMP 02/05/18 10:35 02/02/18 06:20 Assessment/Plan swelling of the left arm cellulitis of the left arm leukocytosis pain cx results noted plan if patient going home send home patient on bactrim ds bid for a period of 7 more days wound care rest as per the team
== END 2018-02-06 14:22 | disposition home or self-care (01) | DRG 383 ==
LOC: JER 12:32 → JERBED 15:32 → J7W 16:55
PROVIDERS: ADMIT Internal Medicine; ATTEND Nurse Practitioner Acute Care
PROC: 0H9CXZX Drainage of Left Upper Arm Skin, External Approach, Diagnostic (ICD-10-PCS; principal; 2018-02-03 12:00)
DX: L03.114 Cellulitis of left upper limb (principal); E87.1 Hypo-osmolality and hyponatremia; F17.210 Nicotine dependence, cigarettes, uncomplicated
CPT/HCPCS: 36415; 71045-TC-FY; 73200-TC-RT; 80048; 80053; 80061; 81003; 81015; 83036; 83605; 83721; 83735; 84439; 84443; 84481; 84484; 85025; 85027; 87040; 87070; 87086; 87186; 87205; 93005; 93010; 93971; 94760; 99282-25; J7030